=== PATIENT | male | born 1935 | race Caucasian/White ===

== ENCOUNTER 2017-01-21 11:54 | Emergency (ER) | payer OTHER ==
[~2017-01-21] VITALS: Ht 180.3 cm; Wt 87.6 kg
[~2017-01-21 11:54] MED LIST: ATEN-173 PO; CEPH500C PO; CMD2 PO; DOXY100C2 PO; FRS/40 PO; GABA-113 PO; WARF2TAB PO; ZCR40 PO
[2017-01-21 11:56] VITALS: TEMP 36.3; Ht 180.3 cm; Wt 87.6 kg
[2017-01-21] MEDS ORDERED: ACET-1311 PO (12:06)
[2017-01-21] MEDS ORDERED: WARF4TAB43 PO (12:06)
[2017-01-21] MEDS ORDERED: FLUO0.0220 TOP (12:06)
[2017-01-21 13:10] LABS: BASO % 0.5 %; BASO ABS # 0.03 K/uL (0-0.2); COMPLETE YES; EOS % 1.8 %; HEMATOCRIT 35.4 % (42-52); IG% 0.2 %; LYMPH % 27.5 %; LYMPH ABS # 1.83 K/uL (1.2-3.4); MEAN CELL VOLUME 98.6 fL (80-100); MEAN CORPUSCULAR HEMOGLOBIN 33.1 pg (25-34); MEAN CORPUSCULAR HGB CONC 33.6 g/dl (32-36); MEAN PLATELET VOLUME 10.8 fL (7.4-10.4); MONO % 10.7 %; NEUT % 59.3 %; PLATELET COUNT 147 K/uL (130-400); RED BLOOD COUNT 3.59 M/uL (4.7-6.1); WHITE BLOOD COUNT 6.66 K/uL (4.8-10.8)
[2017-01-21 13:20] LABS: INR 3.1 (0.9-1.1); PARTIAL THROMBOPLASTIN RATIO 1.7; PROTHROMBIN TIME (PATIENT) 34.6 SECONDS (9.0-12.0)
[2017-01-21 13:30] LABS: BUN/CREATININE RATIO 20.2 (10-20); CALCIUM 9.2 mg/dl (8.5-10.1); CREATININE 1.6 mg/dl (0.60-1.40)
[2017-01-21 13:34] LABS: ALB/GLOB RATIO 0.9 (0.9-2)
[2017-01-21] MEDS ORDERED: OXYMETAZOLINE HCL 0.05% NA SPR 15 ML BTL STA (13:53)
--- NOTE | 2017-01-21 14:04 | EMERGENCY ROOM VISIT NOTE ---
History First contact with patient: 12:11 Chief Complaint: NOSE BLEED (MINOR) Stated Complaint: NOSE BLEEDS History of Present Illness The patient is a 81 year old male who presents to the Emergency Room via private vehicle accompanied by daughter with complaints of "nosebleeds". The patient states that he has had intermittent nosebleeds for the past 5 days. He is on Coumadin for atrial fibrillation, and is also had reconstructive surgery for skin cancer. The nosebleed does stop with pressure. The last nosebleed was yesterday, and no bleeding has been noted today. The past 5 days have been worsening as far as each nosebleed. There is no pain at this time. Review of Systems A complete 10-point Review of Systems was discussed with the patient, with pertinent positives and negatives listed in the History of Present Illness. All remaining Review of Systems questions can be considered negative unless otherwise specified. Past Medical/Surgical History Medical Problems: (1) Atrial Fibrillation (2) Diab Greta Wo Compl, Type Ii Or Unspec Type, Uncontrolled Family History Omit due to old age Social History Smoking Status: Former Smoker Alcohol Use: occasionally Drug Use: none Marital Status: Occupation Status: retired Current/Historical Medications Scheduled Atenolol (Tenormin), 25 MG PO DAILY Fluorouracil (Topical) (Fluorouracil), 1 APPLN TOP DAILY Furosemide (Lasix), 40 MG PO DAILY Simvastatin (Simvastatin), 40 MG PO DAILY Warfarin Sodium (Coumadin), 3 MG PO 5XWK Warfarin Sodium (Warfarin Sodium), 4 MG PO MWF Miscellaneous Medications Acetaminophen (Tylenol), 650 MG PO Allergies Coded Allergies: No Known Allergies (Verified , 01/21/17) Physical Exam Vital Signs Date Time Temp Pulse Resp B/P Pulse Ox O2 Delivery O2 Flow Rate FiO2 01/21/17 14:14 51 16 179/86 100 01/21/17 11:56 36.3 57 20 161/83 96 Room Air Physical Exam VITAL SIGNS - Vital signs and nursing notes were reviewed. Afebrile hypertensive at 161/83, nontoxic tachycardic and is saturating well on room air at 96%. GENERAL -81-year-old male appearing his stated age who is in no acute distress. Communicates well with provider and answers questions appropriately. SKIN - Without rashes. HEAD - NC/AT. EYES - PERRL with EOMI bilaterally. Sclera anicteric. Palpebral conjunctiva pink and moist with no injection noted. EARS - No deformities of external structures noted on gross examination bilaterally. No pain elicited with palpation of the tragus bilaterally. External auditory canals without discharge or otorrhea. Tympanic membranes pearly carrillo without retraction or bulging. No fluid or purulent material visualized behind the TM. Handle of malleus, umbo, cone of light, pars tensa/ flaccid all easily visualized. No hemotympanum NOSE - Midline and without cyanosis. No current epistaxis or purulent drainage noted. Septum midline without deviation or septal hematoma noted. There is dried blood in the naris bilaterally. MOUTH/OROPHARYNX - Without perioral cyanosis. Buccal mucosa pink and moist and without leukoplakia. Tongue midline with equal elevation of palate bilaterally. No tonsillar hypertrophy, erythema, or exudates noted. Fair dentition noted. No blood in the posterior pharynx. NECK - Neck with FROM. Supple to palpation. No lymphadenopathy noted. No nuchal rigidity. Medical Decision & Procedures Laboratory Results 01/21/17 12:50 Red Blood Count 3.59, Mean Corpuscular Volume 98.6, Mean Corpuscular Hemoglobin 33.1, Mean Corpuscular Hemoglobin Concent 33.6, Mean Platelet Volume 10.8, Neutrophils (%) (Auto) 59.3, Lymphocytes (%) (Auto) 27.5, Monocytes (%) (Auto) 10.7, Eosinophils (%) (Auto) 1.8, Basophils (%) (Auto) 0.5, Neutrophils # (Auto ) 3.96, Lymphocytes # (Auto) 1.83, Monocytes # (Auto) 0.71, Eosinophils # (Auto ) 0.12, Basophils # (Auto) 0.03 01/21/17 12:50 Test 01/21/17 12:50 White Blood Count 6.66 K/uL (4.8-10.8) Red Blood Count 3.59 M/uL (4.7-6.1) Hemoglobin 11.9 g/dL (14.0-18.0) Hematocrit 35.4 % (42-52) Mean Corpuscular Volume 98.6 fL (80-100) Mean Corpuscular Hemoglobin 33.1 pg (25-34) Mean Corpuscular Hemoglobin Concent 33.6 g/dl (32-36) Platelet Count 147 K/uL (130-400) Mean Platelet Volume 10.8 fL (7.4-10.4) Neutrophils (%) (Auto) 59.3 % Lymphocytes (%) (Auto) 27.5 % Monocytes (%) (Auto) 10.7 % Eosinophils (%) (Auto) 1.8 % Basophils (%) (Auto) 0.5 % Neutrophils # (Auto) 3.96 K/uL (1.4-6.5) Lymphocytes # (Auto) 1.83 K/uL (1.2-3.4) Monocytes # (Auto) 0.71 K/uL (0.11-0.59) Eosinophils # (Auto) 0.12 K/uL (0-0.5) Basophils # (Auto) 0.03 K/uL (0-0.2) RDW Standard Deviation 52.9 fL (36.4-46.3) RDW Coefficient of Variation 14.6 % (11.5-14.5) Immature Granulocyte % (Auto) 0.2 % Immature Granulocyte # (Auto) 0.01 K/uL (0.00-0.02) Prothrombin Time 34.6 SECONDS (9.0-12.0) Prothromb Time International Ratio 3.1 (0.9-1.1) Activated Partial Thromboplast Time 43.7 SECONDS (21.0-31.0) Partial Thromboplastin Ratio 1.7 Anion Gap 5.0 mmol/L (3-11) Est Creatinine Clear Calc Drug Dose 37.2 ml/min Estimated GFR () 45.5 Estimated GFR (Non- 39.3 BUN/Creatinine Ratio 20.2 (10-20) Calcium Level 9.2 mg/dl (8.5-10.1) Total Bilirubin 1.2 mg/dl (0.2-1) Aspartate Amino Transf (AST/SGOT) 29 U/L (15-37) Alanine Aminotransferase (ALT/SGPT) 23 U/L (12-78) Alkaline Phosphatase 145 U/L (45-117) Total Protein 8.0 gm/dl (6.4-8.2) Albumin 3.7 gm/dl (3.4-5.0) Globulin 4.3 gm/dl (2.5-4.0) Albumin/Globulin Ratio 0.9 (0.9-2) Medical Decision Patient was seen and evaluated as above. He presents to us today with a history of nosebleeds, worse over the past 5 days. There is spontaneous in nature, and stop with pressure. He is on Coumadin for atrial fibrillation. Because of the spontaneous nosebleeds, I did elect to obtain IV access and check baseline labs to evaluate platelet function and INR. CBC reveals no leukocytosis, hemoglobin of 11.9, which is only slightly decreased from previous. INR today is 3.1. PRP reveals BUN of 32, creatinine of 1.6, this actually appears to be improved from previous. Total bilirubin is elevated at 1.2, again overall this is decreased from previous. Alkaline phosphatase is elevated at 145. Globulin elevated at 4.3. Currently at this time no packing, cauterization is necessary as there is adequate hemostasis. No epistaxis at this time. Patient is encouraged to use normal saline, as well as provided with aspirin and no splint to use during epistaxis events. He is only to use the Afrin during nosebleeds. He is to follow-up with his family doctor regarding today's visit and laboratory studies. He was educated upon management today's findings, educated on worrisome symptoms which to return, was seen by my attending, and was instructed to you hold the Coumadin for 1 dose, and was discharged home in good condition. In evaluation treatment this patient following differential diagnoses were entertained: Anterior epistaxis, posterior epistaxis, blood dyscrasia, among others. Impression Primary Impression: Epistaxis Additional Impressions: Anemia Total bilirubin, elevated Departure Information Dispostion Home / Self-Care Condition GOOD Referrals Ibrahima Vo M.D. (PCP) Patient Instructions My [facility] Additional Instructions You have been treated in the Emergency Department today for your Nose Bleed ( Epistaxis). Please use the Afrin nasal spray (Oxymetazoline) when you get the nosebleeds. Please spray to this into your nostril and use a nose clamp for 15 minutes. Please do not exceed the dosage on the package. Please only use if you experience a nosebleed! Do NOT blow your nose for the next few days. This can result in recurrence of your nosebleed. You should consider using a humidifier to help moisten the air and decrease instances of nosebleeds. You can use aqfr-zwi-zlrdzoa saline nasal sprays to help moisten the nasal mucosa and decrease instances of nosebleeds. As with any trip to the Emergency Department, you should follow-up with your Primary Care Provider from today's visit. Please follow-up with your family doctor, for your anemia, please hold your dose of Coumadin tomorrow but then resume as normal. Please also follow-up for your elevated creatinine, and a bilirubin at 1.2. Please also follow-up for your abnormal labs with your family doctor by calling first thing tomorrow morning. Return to the emergency department if your symptoms persist despite treatment plan outlined above or if the following symptoms occur: uncontrollable nosebleed , dizziness, lightheadedness, pre-syncope, or re-bleed. Please return to the emergency department with any new/concerning symptoms. Problem Qualifiers
[2017-01-21 14:14] VITALS: BP 179/86; PULSE 51; O2SAT 100
--- NOTE | 2017-01-21 16:12 | EMERGENCY ROOM VISIT NOTE ---
ED Visit Note First contact with patient: 12:11 I have personally evaluated this patient examined her and reviewed the pertinent labs and data. I have discussed the case with Ray Boyle, the physician general surgery physician assistant and agree with the plan. Please refer to the PA note This patient has been having anterior nosebleeds intermittently. He's had none since yesterday. He is on Coumadin . His INR is mildly elevated at 3.1. He is on is for A. fib . I will have him hold his next dose. His hemoglobin is stable there are no lesions that are amenable to cautery or packing at this point. Keep this humidified and more he can apply some Vaseline as well to keep the area moist. Return if any new problems or concerns.
== END 2017-01-21 14:19 | disposition home or self-care (01) ==
LOC: C.EDB 11:55 → C.EDD 14:19
DX: R04.0 Epistaxis (principal); D64.9 Anemia, unspecified; R17 Unspecified jaundice; E11.9 Type 2 diabetes mellitus without complications; Z85.828 Personal history of other malignant neoplasm of skin; I48.91 Unspecified atrial fibrillation; Z87.891 Personal history of nicotine dependence; Z79.01 Long term (current) use of anticoagulants; Z79.899 Other long term (current) drug therapy

== ENCOUNTER → 2017-03-24 | Outpatient (CLI) | payer OTHER ==
[~2017-03-24] MED LIST changes: +ACET-1311 PO; -CEPH500C PO; -CMD2 PO; -DOXY100C2 PO; +FLUO0.0220 TOP; -GABA-113 PO; +WARF4TAB43 PO
[2017-03-24 12:24] LABS: BASO % 0.8 %; BASO ABS # 0.05 K/uL (0-0.2); COMPLETE YES; EOS % 2.5 %; IG% 0.2 %; LYMPH % 24.8 %; LYMPH ABS # 1.61 K/uL (1.2-3.4); MEAN CELL VOLUME 97.1 fL (80-100); MEAN CORPUSCULAR HEMOGLOBIN 32.3 pg (25-34); MEAN CORPUSCULAR HGB CONC 33.2 g/dl (32-36); MEAN PLATELET VOLUME 11.4 fL (7.4-10.4); MONO % 10.3 %; NEUT % 61.4 %; PLATELET COUNT 152 K/uL (130-400); RED BLOOD COUNT 3.81 M/uL (4.7-6.1); WHITE BLOOD COUNT 6.49 K/uL (4.8-10.8)
[2017-03-24 12:42] LABS: ALT/SGPT 20 U/L (12-78); AST/SGOT 23 U/L (15-37); BLOOD UREA NITROGEN 23 mg/dl (7-18); BUN/CREATININE RATIO 15.5 (10-20); CALCIUM 9.2 mg/dl (8.5-10.1); CARBON DIOXIDE 27 mmol/L (21-32); CHLORIDE 106 mmol/L (98-107); GLUCOSE 108 mg/dl (70-99); POTASSIUM 4.1 mmol/L (3.5-5.1); SODIUM 141 mmol/L (136-145)
[2017-03-24 12:44] LABS: ALB/GLOB RATIO 0.9 (0.9-2); ALKALINE PHOSPHATASE 156 U/L (45-117); CHOLESTEROL 133 mg/dl (0-200); CHOLESTEROL/HDL RATIO 1.9; HDL CHOLESTEROL 70 mg/dl; LDL CHOLESTEROL CALCULATED 51 mg/dl; TRIGLYCERIDES 60 mg/dl (0-150); VERY LOW DENSITY LIPOPROT CALC 12 mg/dl
[2017-03-24 12:48] LABS: ESTIMATED AVERAGE GLUCOSE 134 mg/dl; HA1C FLAG Normal (Normal)
[2017-03-24 12:57] LABS: RATIO 1114.3 mcg/mg (0-30.0)
== END | disposition home or self-care (01) ==
LOC: C.LABBFT 10:43
PROVIDERS: ATTEND Internal Medicine
DX: E11.29 Type 2 diabetes mellitus with other diabetic kidney complication (principal); E78.00 Pure hypercholesterolemia, unspecified; I48.91 Unspecified atrial fibrillation

== ENCOUNTER → 2017-09-25 | Outpatient (CLI) | payer OTHER ==
[2017-09-25 17:45] LABS: HEMATOCRIT 38.3 % (42-52); HEMOGLOBIN 13.1 g/dL (14.0-18.0); MEAN CELL VOLUME 97.5 fL (80-100); MEAN CORPUSCULAR HEMOGLOBIN 33.3 pg (25-34); MEAN CORPUSCULAR HGB CONC 34.2 g/dl (32-36); MEAN PLATELET VOLUME 12.6 fL (7.4-10.4); PLATELET COUNT 157 K/uL (130-400); RED CELL DISTRIBUTION WIDTH CV 13.6 % (11.5-14.5); RED CELL DISTRIBUTION WIDTH SD 48.6 fL (36.4-46.3)
[2017-09-25 17:53] LABS: INR 1.7 (0.9-1.1)
[2017-09-25 18:33] LABS: ALBUMIN 3.9 gm/dl (3.4-5.0); ALT/SGPT 22 U/L (12-78); AST/SGOT 22 U/L (15-37); BLOOD UREA NITROGEN 33 mg/dl (7-18); CALCIUM 9.3 mg/dl (8.5-10.1); CARBON DIOXIDE 29 mmol/L (21-32); CREATININE 1.74 mg/dl (0.60-1.40); GLUCOSE 73 mg/dl (70-99); POTASSIUM 4.2 mmol/L (3.5-5.1); SODIUM 138 mmol/L (136-145)
[2017-09-25 18:44] LABS: ALKALINE PHOSPHATASE 106 U/L (45-117); CHOLESTEROL 136 mg/dl (0-200); LDL CHOLESTEROL CALCULATED 53 mg/dl; TOTAL PROTEIN 8.2 gm/dl (6.4-8.2)
== END | disposition home or self-care (01) ==
LOC: C.LABBFT 13:43
PROVIDERS: ATTEND Internal Medicine Cardiovascular Disease
DX: E11.29 Type 2 diabetes mellitus with other diabetic kidney complication (principal); I48.91 Unspecified atrial fibrillation

== ENCOUNTER → 2017-10-09 | Outpatient (CLI) | payer OTHER ==
[2017-10-09 13:05] LABS: INR 2.3 (0.9-1.1)
== END | disposition home or self-care (01) ==
LOC: C.LABBFT 09:55
PROVIDERS: ATTEND Internal Medicine Cardiovascular Disease
DX: I48.91 Unspecified atrial fibrillation (principal)

== ENCOUNTER 2017-11-17 11:23 | Emergency (ER) | payer OTHER ==
[~2017-11-17] VITALS: Ht 177.8 cm; Wt 85.6 kg
[2017-11-17 11:30] VITALS: TEMP 36.4; Ht 177.8 cm; Wt 85.6 kg
--- NOTE | 2017-11-17 12:15 | DIAGNOSTIC IMAGING REPORT ---
R TIBIA/FIBULA 2 VIEWS ROUTINE CLINICAL HISTORY: Right tibial pain. COMPARISON: None. DISCUSSION: No acute fractures or dislocations are visualized. There are vascular calcifications present. There is Achilles insertional spurring. 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 IMPRESSION: No fractures or dislocations identified. Electronically signed by: Farrukh Pulido M.D. 11/17/2017 12:14 PM Dictated Date/Time: 11/17/2017 12:13 PM
[2017-11-17] MEDS ORDERED: CEPH500C2 PO (13:26)
[2017-11-17 13:38] VITALS: BP 196/87; PULSE 60; O2SAT 98
--- NOTE | 2017-11-18 07:46 | EMERGENCY ROOM VISIT NOTE ---
ED Visit Note First contact with patient: 11:35 Chief Complaint: Right lower leg pain. History of Present Illness: Mr. Caba is an 82-year-old white male who ambulates into the ED using a cane accompanied by his daughter complaining of anterior and medial right lower leg pain. 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 He reports at the time of the injury he immediately had pain in this area and this has continued and worsened over the last week. He describes his pain as a sharp sensation. He rates his discomfort 9/10. He reports intermittently his pain does radiate up the anterior medial aspect of the lower leg and stops just before the knee. His pain worsens with palpation. He has not identified any alleviating factors related to the pain. He reports he has been using acetaminophen without relief of his discomfort. Associated with his pain he reports he has noted some redness and mild swelling in the area where his leg was struck. Patient and daughter deny fevers, chills, sweats, other new skin eruptions, upper respiratory tract symptoms, cough, wheezing, shortness of breath, chest pain, decreased appetite, abdominal pain, nausea, vomiting, right lower extremity weakness/numbness/tingling. Review of Systems: As noted above in history of present illness. 8 body systems were reviewed and found to be negative as noted above. Past Medical History: Diabetes, atrial fibrillation, hypertension, skin cancer. Current Medications: Medications Dose Route/Sig Max Daily Dose Days Date Category Dose Instructions Fluorouracil (Fluorouracil (Topical)) 0.5 % Cre 1 Appln TOP DAILY 01/21/17 Reported Tylenol (Acetaminophen) 325 Mg Tab 650 Mg PO UD 01/21/17 Reported Warfarin Sodium 2 Mg Tab 4 Mg PO MWF 90 01/21/17 Reported Coumadin (Warfarin Sodium) 2 Mg Tab 3 Mg PO 4XWK 05/27/16 Reported [id number]-[id number] AND FRIDAY Simvastatin 40 Mg Tab 40 Mg PO HS 08/01/14 Reported Lasix (Furosemide) 40 Mg Tab 40 Mg PO QAM 08/01/14 Reported Tenormin (Atenolol) 25 Mg Tab 25 Mg PO QAM 04/25/11 Reported Allergies to Medications: Patient and daughter deny. Social History: Patient is currently retired; lives by himself; he admits to tobacco use and denies alcohol use. Physical Examination: Vital Signs: Date Time Temp Pulse Resp B/P (MAP) Pulse Ox O2 Delivery O2 Flow Rate FiO2 11/17/17 13:38 60 18 196/87 98 11/17/17 13:25 60 18 196/87 98 Room Air 11/17/17 11:30 36.4 60 18 187/78 98 Room Air GENERAL: 82-year-old male in mild distress due to pain, nontoxic-appearing, afebrile and hemodynamically stable. NEUROLOGICAL: Awake, alert and oriented to person, place and time. Answering questions appropriately and following commands. Normal gait with cane use. Good hand eye coordination. SKIN: Warm, dry and pink. Lower Extremities: Patient has bilateral chronic venous stasis changes to both legs. On the right leg where they can instruct the patient patient has a 4-5 cm erythematous area that is slightly warm to the touch and has minimal swelling. There is no local lymphangitis. I do not see any breaks in the skin. The skin itself does not appear cellulitic. THORAX: Lungs sounds are clear to auscultation and equal bilaterally with symmetrical chest wall. ABDOMEN: Flat, soft and nontender. Positive bowel sounds in all quadrants. No guarding, rigidity or organomegaly. RIGHT LOWER EXTREMITY: No gross bony deformity. No shortening or malrotation. No tenderness in the hip, thigh, knee, ankle or foot. Moderate tenderness over the right anterior and medial aspect of the distal right tibia. In this area as previously noted under skin is in mild area of erythema with swelling. I do not appreciate any bony deformity or crepitus. He has full range of motion in flexion and extension of the knee and plantar flexion and dorsiflexion of the ankle. Bilateral dependent edema. Skin was warm and pink and capillary refill is brisk. Patient does have excessive growth of the toenail; daughter reported the patient had an appointment with the scout sniper but canceled it and she reports she would make an a new one. He was able to distinguish light sensations to all dermatomes of the foot. ED Course: Patient is assessed as noted above. Patient's medication list was reviewed. Patient was offered pain medication and refused. Right Tibia/Fibula X-Rays: Were read by myself and the radiologist showing no acute fractures or dislocations. Radiologist notes vascular calcification, Achilles insertional spurring and chondrocalcinosis at the level of the knee with mild degenerative changes. Patient's case was reviewed with Dr. Horne; she and apparently assessed the patient we agreed on diagnostic approach, treatment, disposition and plan. Patient and daughter were educated about today's findings and instructed on her treatment plan; they verbalized understanding and agreement with this plan. Clinical Impression: Contusion of the right lower leg. Possible early cellulitis. Decision-Making: Initially my differential diagnosis I considered fracture, contusion, skin infection/cellulitis and other causes. Disposition: Patient discharged to home in stable condition accompanied by his daughter; prior to departure he was reassessed and subjectively reported he was feeling the same. Plan: Patient was encouraged you 650 mg of acetaminophen every 6 hours as needed for pain. Patient was prescribed Keflex 500 mg 3 times a day for 5 days. Patient was encouraged to keep his foot elevated at rest. Patient was encouraged to continue to use his cane when walking. Patient was encouraged to follow-up with PCP for recheck in 3-5 days. Patient was encouraged to return the ED for increasing pain, increasing redness , red streaking, fevers, increasing swelling or any new/concerning symptoms.
--- NOTE | 2017-11-18 15:44 | EMERGENCY ROOM VISIT NOTE ---
ED Visit Note First contact with patient: 11:35 I have personally seen and evaluated the patient with the PA. I agree with the diagnosis and management decisions and have been personally involved in the case. Please see Steven Jorge PA-C's notes for further details of the history, physical and visit.
== END 2017-11-17 13:39 | disposition home or self-care (01) ==
LOC: C.EDB 11:24 → C.EDD 13:39
DX: S80.11XA Contusion of right lower leg, initial encounter (principal); M79.604 Pain in right leg; W22.8XXA Striking against or struck by other objects, initial encounter; I48.91 Unspecified atrial fibrillation; E11.9 Type 2 diabetes mellitus without complications; Z87.891 Personal history of nicotine dependence; Z79.01 Long term (current) use of anticoagulants; Z79.899 Other long term (current) drug therapy

== ENCOUNTER 2018-01-15 13:41 | Emergency (ER) | payer OTHER ==
[~2018-01-15] VITALS: Ht 180.3 cm; Wt 96.0 kg
[~2018-01-15 13:41] MED LIST changes: +CEPH500C2 PO
[2018-01-15 13:49] VITALS: Ht 180.3 cm; Wt 96.0 kg
[2018-01-15] MEDS ORDERED: HYDROCODONE/ACETAMIN 5/325MG TAB PO STA (14:36)
[2018-01-15] MEDS ORDERED: FENTANYL CITRATE INJ 50 MCG/1 ML 2 ML VIAL IV ONE (14:45)
--- NOTE | 2018-01-15 15:24 | DIAGNOSTIC IMAGING REPORT ---
RIGHT ANKLE 3 VIEWS CLINICAL HISTORY: Crushing injury. FINDINGS: 3 views of the right ankle are obtained. Correlation is made with radiographs of the right tibia and fibula dated 11/17/2017. The skeletal structures are osteopenic. No fracture is identified. The ankle mortise is intact. There is a large plantar calcaneal enthesophyte. Degenerative spurring is seen along the dorsal aspect of the tarsal bones. No joint effusion is identified. Soft tissue edema is present throughout the imaged right lower extremity. Hematoma is suggested in the lateral aspect of the calf. There is atherosclerotic calcification of the regional arteries. IMPRESSION: 1. Marked soft tissue edema with no radiographic evidence of right ankle fracture. 2. Osteopenia and degenerative change as above. 3. Hematoma is suggested in the lateral aspect of the calf. Electronically signed by: Jesus Kwan M.D. 01/15/2018 3:23 PM Dictated Date/Time: 01/15/2018 3:21 PM
[2018-01-15 15:27] LABS: BASO % 0.1 %; BASO ABS # 0.01 K/uL (0-0.2); EOS % 0.1 %; EOS ABS # 0.01 K/uL (0-0.5); HEMATOCRIT 29.5 % (42-52); HEMOGLOBIN 10.4 g/dL (14.0-18.0); IG# 0.04 K/uL (0.00-0.02); LYMPH % 9.1 %; LYMPH ABS # 1.19 K/uL (1.2-3.4); MEAN CELL VOLUME 94.6 fL (80-100); MEAN CORPUSCULAR HEMOGLOBIN 33.3 pg (25-34); MEAN CORPUSCULAR HGB CONC 35.3 g/dl (32-36); MEAN PLATELET VOLUME 10.2 fL (7.4-10.4); MONO % 10.2 %; MONO ABS # 1.33 K/uL (0.11-0.59); NEUT % 80.2 %; NEUT ABS # 10.49 K/uL (1.4-6.5); PLATELET COUNT 121 K/uL (130-400); RED CELL DISTRIBUTION WIDTH SD 48.2 fL (36.4-46.3); WHITE BLOOD COUNT 13.07 K/uL (4.8-10.8)
--- NOTE | 2018-01-15 15:29 | DIAGNOSTIC IMAGING REPORT ---
R TIBIA/FIBULA 2 VIEWS ROUTINE HISTORY: 82 years-old Male s/p statue to leg, coumadin, neuro intact, significant swelling acute right leg pain status post trauma COMPARISON: Right tibia and fibula radiographs 11/17/2017, right ankle radiographs 01/15/2018 TECHNIQUE: 2 views of the right tibia and fibula FINDINGS: Marked soft tissue swelling about the lower leg with suggested hematoma of the lateral lower leg measuring up to 12.5 cm in length. Peripheral vascular disease. No opaque foreign body. Tricompartmental osteoarthritis about the knee. No acute fracture or dislocation. IMPRESSION: 1. No acute fracture. 2. Marked soft tissue swelling with suggested hematoma of the lateral lower leg, 12.5 cm. 3. Peripheral vascular disease. The above report was generated using voice recognition software. It may contain grammatical, syntax or spelling errors. Electronically signed by: Lane Rice M.D. 01/15/2018 3:28 PM Dictated Date/Time: 01/15/2018 3:26 PM
[2018-01-15 15:47] LABS: INR 4.1 (0.9-1.1)
[2018-01-15 15:48] LABS: PTT PATIENT 55.5 SECONDS (21.0-31.0)
[2018-01-15 15:49] LABS: CALCIUM 8.6 mg/dl (8.5-10.1); CREATININE 2.16 mg/dl (0.60-1.40); POTASSIUM 4.2 mmol/L (3.5-5.1)
--- NOTE | 2018-01-15 18:29 | EMERGENCY ROOM VISIT NOTE ---
History Report prepared by Cornelius: Td Johnson Under the Supervision of: Dr. Brad Clarke M.D. First contact with patient: 14:15 Chief Complaint: LEG PAIN,LEG INJURY Stated Complaint: STATUE FELL ON LEG History of Present Illness The patient is an 82 year old white male with a past medical history of atrial fibrillation and diabetes, who presents to the Emergency Room with complaints of constant pain in his right leg/ankle which began on Friday, 2 days ago. The patient states that he was mowing the lawn and got too close to a statue. The statue fell over and hit his right ankle. The patient's daughter at bedside notes that he has been taking Tramadol for the past 2 days, which has been improving the pain intermittently. The patient is on Coumadin for an irregular rhythm. Source of History: patient Onset: 2 days ago Position: leg (right), ankle (right) Quality: other (Pain from injury (statue fall), swelling) Timing: constant Modifying Factors (Relieving): other (Tramadol) Review of Systems See HPI for pertinent positives and negatives. A total of ten systems were reviewed and were otherwise negative. Past Medical & Surgical Medical Problems: (1) Atrial Fibrillation (2) Diab Greta Wo Compl, Type Ii Or Unspec Type, Uncontrolled Family History Omit due to old age Social History Smoking Status: Never Smoker Alcohol Use: occasionally Drug Use: none Marital Status: Occupation Status: retired Current/Historical Medications Scheduled Acetaminophen (Tylenol), 650 MG PO UD Atenolol (Tenormin), 25 MG PO QAM Fluorouracil (Topical) (Fluorouracil), 1 APPLN TOP DAILY Furosemide (Lasix), 40 MG PO QAM Simvastatin (Simvastatin), 40 MG PO HS Warfarin Sodium (Coumadin), 3 MG PO [id number] Warfarin Sodium (Warfarin Sodium), 4 MG PO MWF Allergies Coded Allergies: No Known Allergies (Verified , 01/15/18) Physical Exam Vital Signs Date Time Temp Pulse Resp B/P (MAP) Pulse Ox O2 Delivery O2 Flow Rate FiO2 01/15/18 18:44 37.5 66 18 109/67 99 01/15/18 16:52 70 18 156/72 99 01/15/18 13:49 37.5 82 18 133/64 93 Room Air Physical Exam GENERAL: Awake, alert, well-appearing, NAD, wearing baseball cap. HENT: Normocephalic, atraumatic. EYES: Normal conjunctiva. Sclera non-icteric. PERRL. No anisocoria. NECK: Supple. No nuchal rigidity. FROM. RESPIRATORY: CTAB, no rhonchi, wheezing, crackles CARDIAC: RRR, no MRG ABDOMEN: Soft, NTND, BS+ MSK: No chest wall TTP, significant bilateral lower extremity edema right greater than left. There is an area of 10x10 cm ecchymosis over the anterior/ lateral portion of right leg and ankle. Bullae over R lateral lower extremity 4 cm x 2 cm. Good flexion and extension at the ankle. No sensory deficits. NEURO: GCS 15, CN 2-12 intact, moves all 4s on command SKIN: No rash or jaundice noted. Medical Decision & Procedures ER Provider Diagnostic Interpretation: Radiology results as stated below per my review and radiologist interpretation: RIGHT ANKLE 3 VIEWS CLINICAL HISTORY: Crushing injury. FINDINGS: 3 views of the right ankle are obtained. Correlation is made with radiographs of the right tibia and fibula dated 11/17/2017. The skeletal structures are osteopenic. No fracture is identified. The ankle mortise is intact. There is a large plantar calcaneal enthesophyte. Degenerative spurring is seen along the dorsal aspect of the tarsal bones. No joint effusion is identified. Soft tissue edema is present throughout the imaged right lower extremity. Hematoma is suggested in the lateral aspect of the calf. There is atherosclerotic calcification of the regional arteries. IMPRESSION: 1. Marked soft tissue edema with no radiographic evidence of right ankle fracture. 2. Osteopenia and degenerative change as above. 3. Hematoma is suggested in the lateral aspect of the calf. Electronically signed by: Jesus Kwan M.D. 01/15/2018 3:23 PM Dictated Date/Time: 01/15/2018 3:21 PM R TIBIA/FIBULA 2 VIEWS ROUTINE HISTORY: 82 years-old Male s/p statue to leg, coumadin, neuro intact, significant swelling acute right leg pain status post trauma COMPARISON: Right tibia and fibula radiographs 11/17/2017, right ankle radiographs 01/15/2018 TECHNIQUE: 2 views of the right tibia and fibula FINDINGS: Marked soft tissue swelling about the lower leg with suggested hematoma of the lateral lower leg measuring up to 12.5 cm in length. Peripheral vascular disease. No opaque foreign body. Tricompartmental osteoarthritis about the knee. No acute fracture or dislocation. IMPRESSION: 1. No acute fracture. 2. Marked soft tissue swelling with suggested hematoma of the lateral lower leg, 12.5 cm. 3. Peripheral vascular disease. The above report was generated using voice recognition software. It may contain grammatical, syntax or spelling errors. Electronically signed by: Lane Rice M.D. 01/15/2018 3:28 PM Dictated Date/Time: 01/15/2018 3:26 PM Laboratory Results 01/15/18 15:10 Red Blood Count 3.12, Mean Corpuscular Volume 94.6, Mean Corpuscular Hemoglobin 33.3, Mean Corpuscular Hemoglobin Concent 35.3, Mean Platelet Volume 10.2, Neutrophils (%) (Auto) 80.2, Lymphocytes (%) (Auto) 9.1, Monocytes (%) (Auto) 10.2, Eosinophils (%) (Auto) 0.1, Basophils (%) (Auto) 0.1, Neutrophils # (Auto ) 10.49, Lymphocytes # (Auto) 1.19, Monocytes # (Auto) 1.33, Eosinophils # (Auto ) 0.01, Basophils # (Auto) 0.01 01/15/18 15:10 Test 01/15/18 15:10 White Blood Count 13.07 K/uL (4.8-10.8) Red Blood Count 3.12 M/uL (4.7-6.1) Hemoglobin 10.4 g/dL (14.0-18.0) Hematocrit 29.5 % (42-52) Mean Corpuscular Volume 94.6 fL (80-100) Mean Corpuscular Hemoglobin 33.3 pg (25-34) Mean Corpuscular Hemoglobin Concent 35.3 g/dl (32-36) Platelet Count 121 K/uL (130-400) Mean Platelet Volume 10.2 fL (7.4-10.4) Neutrophils (%) (Auto) 80.2 % Lymphocytes (%) (Auto) 9.1 % Monocytes (%) (Auto) 10.2 % Eosinophils (%) (Auto) 0.1 % Basophils (%) (Auto) 0.1 % Neutrophils # (Auto) 10.49 K/uL (1.4-6.5) Lymphocytes # (Auto) 1.19 K/uL (1.2-3.4) Monocytes # (Auto) 1.33 K/uL (0.11-0.59) Eosinophils # (Auto) 0.01 K/uL (0-0.5) Basophils # (Auto) 0.01 K/uL (0-0.2) RDW Standard Deviation 48.2 fL (36.4-46.3) RDW Coefficient of Variation 14.0 % (11.5-14.5) Immature Granulocyte % (Auto) 0.3 % Immature Granulocyte # (Auto) 0.04 K/uL (0.00-0.02) Prothrombin Time 42.1 SECONDS (9.0-12.0) Prothromb Time International Ratio 4.1 (0.9-1.1) Activated Partial Thromboplast Time 55.5 SECONDS (21.0-31.0) Partial Thromboplastin Ratio 2.1 Anion Gap 7.0 mmol/L (3-11) Est Creatinine Clear Calc Drug Dose 30.1 ml/min Estimated GFR () 31.4 Estimated GFR (Non- 27.1 BUN/Creatinine Ratio 16.5 (10-20) Calcium Level 8.6 mg/dl (8.5-10.1) Laboratory results reviewed by me Medications Administered Medications (Trade) Dose Ordered Sig/Ramu Route Start Time Stop Time Status Last Admin Dose Admin Fentanyl Citrate (Fentanyl Inj) 25 mcg NOW ONCE IV 01/15/18 14:45 01/15/18 14:46 DC 01/15/18 14:45 25 MCG Acetaminophen/ Hydrocodone Bitart ([place] 5/325 Tab) 1 tab ONE STAT PO 01/15/18 14:36 01/15/18 14:39 DC 01/15/18 15:23 1 TAB ED Course 1428: The patient was evaluated in room C11B. A complete history and physical exam was performed. 1831: I reevaluated the patient. Discussed results and discharge instructions: He verbalized understanding and agreement. The patient is ready for discharge. Medical Decision The patient is an 82 year old white male with a past medical history of atrial fibrillation and diabetes, who presents to the Emergency Room with complaints of constant pain in his right leg/ankle which began on Friday, 2 days ago. Nursing notes reviewed. Ancillary studies and prior records reviewed. Differential diagnosis: Etiologies such as fracture, dislocation, neurovascular compromise, compartment syndrome, soft tissue injury, as well as others were entertained. Patient was seen and evaluated the bedside. Patient had mowed the lawn on Friday at which point he stated that a statue fell over in the yard and struck his right lower extremity. The patient has been ambulatory since then. Patient has taken some tramadol but has had some discomfort. On exam the patient does have a large hematoma and ecchymosis of the right lateral aspect of the right lower extremity. The patient does have soft compartments and the patient is able to flex and extend at the ankle. The patient has been elevating the extremity but has not applied any ice or a compressive bandage. Of note the patient does take Coumadin for his history of A. fib. Patient did have blood work completed along with tib-fib and ankle films. Patient's blood work did show that the patient had an elevated INR of greater than 4. He was informed of this finding and told to avoid taking his dose tomorrow morning. Patient was advised to eat some leafy greens perhaps not in a large amount and then do have a recheck of his INR on Friday. The patient did have a bowl of that did rupture. This is likely to secondary to some of the swelling in addition to his elevated INR. The patient was able to ambulate the bedside however given the swelling and the inability to tie his shoe given the swelling we did abort an ambulatory trial. I did have case management discuss with the patient as well as the patient's daughter and we did discuss possible admission; however, the patient refused admission or further referrals or treatment at this time and would like to go home. He was informed that it may be of some benefit for further evaluation and treatment however he declined. Case management did discuss further treatment options with the daughter. I do believe that the father will be going home with the daughter as the patient does live by himself. The patient was told to make sure that he provides wound care for the ruptured bullae. He was told to use gentle soap and water and to apply an antibiotic ointment as well as a new bandage daily. Patient was discharged with strict return precautions. Medication Reconcilliation Current Medication List: was personally reviewed by me Blood Pressure Screening Patient's blood pressure: Elevated blood pressure Blood pressure disposition: Referred to PCP Impression Primary Impression: Hematoma Additional Impressions: Leg pain Elevated INR Scribe Attestation The scribe's documentation has been prepared under my direction and personally reviewed by me in its entirety. I confirm that the note above accurately reflects all work, treatment, procedures, and medical decision making performed by me. Departure Information Dispostion Home / Self-Care Referrals Ibrahima Vo M.D. (PCP) Patient Instructions ED Wound Care, [facility] Additional Instructions Please return to the emergency department if you have worsening or recurrent symptoms not amenable to at-home treatment. Please call for a follow-up appointment with her primary care physician. Please take your medications as prescribed. If you have other concerns and/or complaints please feel free to also call your primary care physician's office or return the ED for further evaluation, management, and treatment. You received narcotic or benzodiazepene medication while in the emergency room today. This is an addictive medication that may cause drowziness as well as constipation. Do not drive, operate heavy machinery, or drink alcohol under the influence of this medication. You may take tylenol 650 mg every 6 hours as needed for pain/fever unless told by your physician to not take it or have liver problems. Please continue to keep your right lower extremity elevated when you are off your feet. Please apply compression bandage. You may wash with gentle soap and water but the return if you develop worsening redness or foul-smelling or yellow drainage. You may also apply ice to the area to help with any swelling. Please call for follow-ups as discussed with the clinical case manager. Take your medications as prescribed. Your INR was elevated at greater than 4 today. Please do not take your dose on January 16. You may resume on January 17. Consider eating a small amount of spinach or leafy greens this evening. Please have a repeat INR checked on Friday. You have been examined and treated today on an emergency basis only. This is not a substitute for, or an effort to provide, complete comprehensive medical care. It is impossible to recognize and treat all injuries or illnesses in a single emergency department visit. It is therefore important that you follow up closely with [facility], your PCP, and/or your specialist(s). Call as soon as possible for an appointment. Thank you for your time and consideration. I look forward to speaking with you again soon. Please don't hesitate to call us if you have any questions. Problem Qualifiers Additional Impressions: Leg pain Laterality: right Qualified Codes: M79.604 - Pain in right leg
[2018-01-15 18:44] VITALS: BP 109/67; PULSE 66; TEMP 37.5; O2SAT 99
== END 2018-01-15 18:45 | disposition home or self-care (01) ==
LOC: C.EDB 13:43 → C.EDC 18:45
DX: S80.11XA Contusion of right lower leg, initial encounter (principal); M79.604 Pain in right leg; W20.8XXA Other cause of strike by thrown, projected or falling object, initial encounter; Y92.017 Garden or yard in single-family (private) house as the place of occurrence of the external cause; Y93.H2 Activity, gardening and landscaping; R79.1 Abnormal coagulation profile; I48.91 Unspecified atrial fibrillation; E11.9 Type 2 diabetes mellitus without complications; Z79.01 Long term (current) use of anticoagulants; Z79.899 Other long term (current) drug therapy